=== PATIENT | male | born 1995 | race Two or more races ===

== ENCOUNTER 2020-11-21 13:04 | Inpatient (IN) | payer OTHER ==
[~2020-11-21] VITALS: Ht 167.6 cm; Wt 104.5 kg
[2020-11-21] MEDS ORDERED: QUET100T PO (13:35)
[2020-11-21 13:59] LABS: COVID AG,FIA SOURCE NASOPHARYNGEAL
[2020-11-21] MEDS ORDERED: MAGNESIUM HYDROXIDE SUSPENSION 30 ML UDCUP PO PRN (14:00)
[2020-11-21] MEDS ORDERED: ACETAMINOPHEN 325 MG TABLET PO PRN (14:00)
[2020-11-21] MEDS ORDERED: ZOLPIDEM TARTRATE 5 MG TABLET PO PRN (14:00)
[2020-11-21 14:15] LABS: HEMATOCRIT 46.4 % (41-53); HEMOGLOBIN 15.4 g/dL (13.5-17.5); LYMPHOCYTES # (AUTO) 1.7 K/uL (1.0-4.8); MEAN CORPUSCULAR HEMOGLOBIN 28.4 pg (26.0-34.0); MEAN CORPUSCULAR HGB CONC 33.2 G/dL (31.0-37.0); MEAN CORPUSCULAR VOLUME 86 fL (80-100); MONOCYTES # (AUTO) 0.9 K/uL (0.1-1.0); MONOCYTES % (AUTO) 8.8 % (2.0-9.0); NEUTROPHILS # (AUTO) 6.8 K/uL (1.8-7.7); NEUTROPHILS % (AUTO) 70.2 % (40.0-70.0); PLATELET COUNT (AUTO) 286 K/uL (150-450); RED BLOOD CELL COUNT(AUTO) 5.43 MIL/uL (4.50-5.90)
[2020-11-21 14:21] LABS: ANION GAP 7 mmol/L (8-16); CALCIUM, TOTAL 7.8 mg/dL (8.8-10.5); CARBON DIOXIDE 27 mmol/L (22-29); CHLORIDE 105 mmol/L (98-107); CREATININE 0.84 mg/dL (0.60-1.30); GLOMERULAR FILTR. RATE CALC > 60 mL/min (>60); GLUCOSE,RANDOM 109 mg/dL (70-110); POTASSIUM 3.9 mmol/L (3.5-5.1); SODIUM SERUM 139 mmol/L (136-145); UREA NITROGEN, BLOOD 17 mg/dL (7-18)
[2020-11-21 14:26] LABS: ALANINE AMINOTRANSFERASE 49 U/L (12-78); ALBUMIN 4.2 g/dL (3.4-5.0); ALKALINE PHOSPHATASE 69 U/L (46-116); ASPARTATE AMINOTRANSFERASE 21 U/L (15-37); BILIRUBIN,TOTAL 0.7 mg/dL (0.1-1.0); TOTAL PROTEIN, SERUM 7.3 g/dL (6.4-8.2)
[2020-11-21 16:34] VITALS: BP 128/69
[2020-11-21 19:45] VITALS: BP 123/63
[2020-11-22 04:15] VITALS: BP 119/71
[2020-11-22 07:26] VITALS: BP 123/68
[2020-11-22] MEDS: FAMOTIDINE 20 MG TABLET PO SCH (08:59)
[2020-11-22] MEDS: OLANZapine 5 MG TABLET PO SCH ×2 (10:27→20:26)
[2020-11-22 11:39] LABS: AMPHET/METH SCREEN,URINE NEGATIVE (NEGATIVE); BARBITURATE SCREEN, URINE NEGATIVE (NEGATIVE); BENZODIAZEPINES SCREEN,URINE NEGATIVE (NEGATIVE); CANNABINOID SCREEN,URINE POSITIVE (NEGATIVE); COCAINE SCREEN,URINE NEGATIVE (NEGATIVE); METHADONE SCREEN, URINE NEGATIVE (NEGATIVE); OPIATE SCREEN,URINE NEGATIVE (NEGATIVE)
[2020-11-22 11:44] LABS: PHENCYCLIDINE SCREEN,URINE NEGATIVE (NEGATIVE)
[2020-11-22 20:30] VITALS: BP 114/71
[2020-11-23 05:15] VITALS: BP 130/73
[2020-11-23 08:16] VITALS: BP 115/66
[2020-11-23] MEDS: FAMOTIDINE 20 MG TABLET PO SCH (08:42)
[2020-11-23] MEDS: OLANZapine 5 MG TABLET PO SCH ×2 (08:42→20:14)
[2020-11-23 20:46] VITALS: BP 129/52
[2020-11-24 03:53] VITALS: BP 122/51
[2020-11-24] MEDS: OLANZapine 5 MG TABLET PO SCH ×2 (08:03→19:44)
[2020-11-24] MEDS: FAMOTIDINE 20 MG TABLET PO SCH (08:03)
[2020-11-24 08:18] VITALS: BP 109/60
[2020-11-24] MEDS: HydrOXYzine PAMOATE 25 MG CAPSULE PO PRN (17:56)
[2020-11-24 19:48] VITALS: BP 110/57
[2020-11-25 05:58] VITALS: BP 125/77
[2020-11-25 08:25] VITALS: BP 122/64
[2020-11-25] MEDS: OLANZapine 5 MG TABLET PO SCH (08:28)
[2020-11-25] MEDS: FAMOTIDINE 20 MG TABLET PO SCH (08:28)
[2020-11-25] MEDS: OLANZapine 10 MG TABLET PO SCH (19:36)
[2020-11-25 19:48] VITALS: BP 126/69
[2020-11-26 04:40] VITALS: BP 129/76
[2020-11-26] MEDS: OLANZapine 5 MG TABLET PO SCH (08:23)
[2020-11-26] MEDS: FAMOTIDINE 20 MG TABLET PO SCH (08:23)
[2020-11-26 08:48] VITALS: BP 120/77
[2020-11-26] MEDS: HydrOXYzine PAMOATE 25 MG CAPSULE PO PRN (11:32)
[2020-11-26] MEDS: OLANZapine 10 MG TABLET PO SCH (20:11)
[2020-11-26 20:43] VITALS: BP 126/57
[2020-11-27 04:45] VITALS: BP 122/75
[2020-11-27 07:32] VITALS: BP 122/75
[2020-11-27] MEDS: OLANZapine 5 MG TABLET PO SCH (08:29)
[2020-11-27] MEDS: FAMOTIDINE 20 MG TABLET PO SCH (08:29)
[2020-11-27] MEDS ORDERED: OLAN5TAB52 PO (10:37)
[2020-11-27] MEDS ORDERED: OLAN10TA74 PO (10:38)
== END 2020-11-27 11:15 | DRG 885 ==
LOC: EMS 13:08 → 6S 15:22
PROVIDERS: ADMIT Internal Medicine; ATTEND Internal Medicine
DX: F20.0 Paranoid schizophrenia (principal); R45.851 Suicidal ideations; F32.9 Major depressive disorder, single episode, unspecified; Z20.822 Contact with and (suspected) exposure to COVID-19; F12.10 Cannabis abuse, uncomplicated
CPT/HCPCS: 80053; 85025; 99285; G0480